=== PATIENT | female | born 1995 | race American Indian/Alaskan Native ===

== ENCOUNTER 2020-08-30 08:36 | Outpatient (CLI) | payer BC ==
--- NOTE | 2020-08-30 12:37 | Ultrasound Report ---
ULTRASOUND BREAST LEFT LIMITED, 08/30/2020 CLINICAL INFORMATION / INDICATION: MASTODYNIA. Patient presents for evaluation of an area of palpable concern in the left breast. TECHNIQUE: Targeted ultrasound evaluation was performed of the area of interest. COMPARISON: None. FINDINGS: Targeted ultrasound was performed of the area of palpable concern in the upper inner quadrant of the left breast. There is a lobulated oval circumscribed hypoechoic mass in the left breast 11:00 positio n located 8 cm from the nipple measuring up to 2.0 x 0.6 x 1.6 cm. The mass is parallel. No internal vascularity is demonstrated. There is an additional parallel oval circumscribed isoechoic mass versus prominent fat lobule in the 11:00 position located 5 cm from the nipple measuring up to 2.4 x 0.9 x 2.2 cm. Surrounding dense fibroglandular tissue is noted. IMPRESSION: 1. A lobulated oval circumscribed hypoechoic mass is seen in the area of palpable concern in the 11:0 0 left breast. This is considered low suspicion for malignancy and most likely represents a fibroaden abdulaziz. Ultrasound-guided biopsy is recommended for confirmation. 2. An adjacent oval circumscribed mass versus prominent fat lobule is seen. If the above biopsy is be nign, recommend six-month follow-up left breast ultrasound to ensure stability. Follow up recommendation: Biopsy BI-RADS Category 4: Suspicious for Malignancy. A normal or "negative" report should not preclude biopsy or follow-up of a clinically suspicious find ing. Signer Name: Jazmine Sierra MD Signed: 08/30/2020 12:32 PM Workstation Name: [email or web address]
== END 2020-08-30 08:37 | disposition home or self-care (01) ==
LOC: US 08:36
PROVIDERS: ATTEND Family Medicine
DX: N63.22 Unspecified lump in the left breast, upper inner quadrant (principal); R92.8 Other abnormal and inconclusive findings on diagnostic imaging of breast

== ENCOUNTER 2021-12-10 21:33 | Emergency (ER) | payer BC ==
[2021-12-11] MEDS ORDERED: dexAMETHasone 4 MG/ML VIAL IV ONE (02:45)
[2021-12-11] MEDS ORDERED: SODIUM CHLORIDE 0.9% 1000 ML 1,000 ML IV ONE (02:45)
[2021-12-11] MEDS ORDERED: diphenhydrAMINE 50 MG/ML VIAL IV STA (02:45)
[2021-12-11] MEDS ORDERED: FAMOTIDINE 20 MG/2 ML INJ IV ONE (02:51)
[2021-12-11 04:26] LABS: Basophils # (Auto) 0.1 K/mm3 (0.0-0.1); Basophils % (Auto) 0.3 % (0.0-1.8); Hematocrit 37.3 % (30.3-42.9); Hemoglobin 12.6 gm/dl (10.1-14.3); Lymphocytes # (Auto) 1.6 K/mm3 (1.2-5.4); Lymphocytes % (Auto) 8.7 % (13.4-35.0); Mean Corpuscular HGB Conc 34 % (30-34); Mean Corpuscular Volume 91 fl (79-97); Monocytes # (Auto) 0.8 K/mm3 (0.0-0.8); Monocytes % (Auto) 4.1 % (0.0-7.3); Platelet Count 474 K/mm3 (140-440); Red Blood Count 4.09 M/mm3 (3.65-5.03); Red Cell Distribution Width 12.7 % (13.2-15.2)
--- NOTE | 2021-12-11 04:58 | Emergency Department Report ---
ED Allergic Reaction HPI - General Chief complaint: Allergic Reaction Stated complaint: ALLERGIC REACTION Time Seen by Provider: 12/11/21 02:44 Source: patient Mode of arrival: Ambulatory Limitations: No Limitations - History of Present Illness Initial Comments: 26-year-old female with asthma department complaining few week history of hives which she has been unable to get with for reasons unknown. She has been unable to isolate the irritant causing the hives and pruritus and subsequently been managed with with multiple [id number] medications and few trips to the urgent care. Reports no fever, chills, sweats. No chest pain palpitations, no nausea this present time MD Complaint: allergic reaction -: Gradual Exposure: unknown Symptoms: rash, itching. denies: facial swelling, lip swelling, difficulty breathing, nausea, vomiting Severity: mild Treatment Prior to Arrival: benadryl, steroids, other (Patient had a local urgent care who sent him home on Pepcid and prednisone patient is yet yet not yet for the prescriptions because the symptoms did worsen so decided come to emergency department to get further evaluation and treatment options) - Related Data Previous Rx's Medication Instructions Recorded Last Taken Type Cyclobenzaprine HCl [Flexeril 5 MG 5 mg PO TID #15 tab 01/29/16 Unknown Rx TAB] Ibuprofen [Motrin] 800 mg PO Q8HR PRN #15 tablet 01/29/16 Unknown Rx Desloratadine [Clarinex] 5 mg PO DAILY #10 12/11/21 Unknown Rx hydrOXYzine HCL [Atarax] 25 mg PO Q6HR PRN #20 tablet 12/11/21 Unknown Rx Allergies Allergy/AdvReac Type Severity Reaction Status Date / Time No Known Allergies Allergy Verified 01/29/16 07:20 ED Review of Systems ROS: Stated complaint: ALLERGIC REACTION Other details as noted in HPI Comment: All other systems reviewed and negative ED Past Medical Hx - Past Medical History Additional medical history: Chest Pain - Social History Smoking Status: Never Smoker Substance Use Type: None - Medications Home Medications: Home Medications Medication Instructions Recorded Confirmed Last Taken Type Cyclobenzaprine HCl [Flexeril 5 MG 5 mg PO TID #15 tab 01/29/16 Unknown Rx TAB] Ibuprofen [Motrin] 800 mg PO Q8HR PRN #15 tablet 01/29/16 Unknown Rx Desloratadine [Clarinex] 5 mg PO DAILY #10 12/11/21 Unknown Rx hydrOXYzine HCL [Atarax] 25 mg PO Q6HR PRN #20 tablet 12/11/21 Unknown Rx ED Physical Exam - General Limitations: No Limitations General appearance: alert, in no apparent distress - Head Head exam: Present: atraumatic, normocephalic - Eye Eye exam: Present: normal appearance - ENT ENT exam: Present: mucous membranes moist - Neck Neck exam: Present: normal inspection - Respiratory Respiratory exam: Present: normal lung sounds bilaterally. Absent: respiratory distress - Cardiovascular Cardiovascular Exam: Present: regular rate, normal rhythm. Absent: systolic murmur, diastolic murmur, rubs, gallop - GI/Abdominal GI/Abdominal exam: Present: soft, normal bowel sounds - Extremities Exam Extremities exam: Present: normal inspection - Back Exam Back exam: Present: normal inspection - Neurological Exam Neurological exam: Present: alert, oriented X3 - Psychiatric Psychiatric exam: Present: normal affect, normal mood - Skin Skin exam: Present: warm, dry, intact, normal color, urticaria (Hips bilaterally and up with some areas on the arm and forearm region). Absent: rash ED Course Vital Signs 12/10/21 21:53 Temperature 98.2 F Pulse Rate 111 H Respiratory 16 Rate Blood Pressure 119/65 O2 Sat by Pulse 98 Oximetry ED Medical Decision Making - Lab Data Result diagrams: 12/11/21 03:12 Critical care attestation.: If time is entered above; I have spent that time in minutes in the direct care of this critically ill patient, excluding procedure time. ED Disposition Clinical Impression: Allergic reaction, Hives Disposition: 01 HOME / SELF CARE / HOMELESS Is pt being admited?: No Does the pt Need Aspirin: No Condition: Stable Instructions: Hives, Rash, Adult, Allergies, Adult, [id number], Exercise- Induced Hives-SportsMed, Allergies, Adult Prescriptions: hydrOXYzine HCL [Atarax] 25 mg PO Q6HR PRN #20 tablet PRN Reason: Itching Desloratadine [Clarinex] 5 mg PO DAILY #10
[2021-12-11 05:30] LABS: Erythrocyte Sedimentation Rate 31 mm/Hr (0-20)
[2021-12-11 05:34] VITALS: BP 126/77
== END 2021-12-11 05:34 | disposition home or self-care (01) ==
LOC: ED 21:33
DX: T78.40XA Allergy, unspecified, initial encounter (principal); X58.XXXA Exposure to other specified factors, initial encounter; L50.9 Urticaria, unspecified
CPT/HCPCS: 36415; 84443; 84703; 85025; 85652; 96361; 96374; 96375; 99283; J1100; J1200; J3490; J7030